=== PATIENT | female | born 1990 | race Caucasian/White ===

== ENCOUNTER 2025-05-26 16:32 | Outpatient (CLI) | payer MEDICAID, SELFPAY ==
--- NOTE | 2025-05-26 16:45 | CRLHL7_ITS ---
For Patients: As a result of the Cures Act, medical imaging exams and procedure reports are released immediately into your electronic medical record. You may view this report before your referring provider. If you have questions, please contact your health care provider. OB ULTRASOUND INDICATION: Dating and viability. TECHNIQUE: Real time grayscale imaging of the fetus was performed. Transabdominal. LMP: 02/24/2025. OSIRIS by LMP: 12/01/2025. GA: 13 w, 0 d. Previous US: No. CRL: 6.5 cm. 12 w 6 d. OSIRIS: 12/02/2025. FHR: 161 BPM. Gestational sac: 5.8 cm. Appears within normal limits. Yolk sac: N/V. Placenta forming. Right ovary: 2.4 x 1.1 x 2.4 cm. Left ovary: N/V. IMPRESSION: Single living intrauterine measures 12 weeks 6 days with sonographic due date 12/02/2025. Blair Bonds M.D. Diagnostic Radiologist [email or web address] RYAN/neva hooks/Dictated by: Blair Bonds MD @ 05/27/2025 7:47:00 AM (Electronically Signed)
== END 2025-05-26 16:33 | disposition home or self-care (01) ==
LOC: US 16:32
PROVIDERS: Visit Provider Physician Assistant
DX: Z34.91 Encounter for supervision of normal pregnancy, unspecified, first trimester (principal); Z3A.13 13 weeks gestation of pregnancy
CPT/HCPCS: 76801; 83021; 86592; 86703; 86704; 86706; 86762; 86787; 86803; 86850; 86900; 86901; 87086; 87340; 87491; 87591

== ENCOUNTER 2025-05-26 17:53 | Outpatient (CLI) | payer MEDICAID, SELFPAY ==
[2025-05-26 21:29] LABS: Chlamydia DNA Amplified* NOT DETECTED (No Detected); GC DNA Amplified* NOT DETECTED (No Detected)
== END 2025-05-26 17:54 | disposition home or self-care (01) ==
PROVIDERS: Visit Provider Physician Assistant
DX: Z34.91 Encounter for supervision of normal pregnancy, unspecified, first trimester (principal); Z3A.13 13 weeks gestation of pregnancy
CPT/HCPCS: 76801; 83020; 83021; 85660; 86592; 86703; 86704; 86706; 86762; 86787; 86803; 86850; 86900; 86901; 87086; 87340; 87491; 87591